=== PATIENT | male | born 1990 | race African-American/Black ===

== ENCOUNTER 2021-09-22 00:18 | Emergency (ER) | payer MEDICAID ==
[~2021-09-22] VITALS: Ht 182.9 cm; Wt 99.0 kg
[2021-09-22] MEDS ORDERED: TETANUS, DIPHTHERIA, PERTUSSIS VAC/PF 0.5ML (>10YR OLD) IM ONE (01:00)
[2021-09-22] MEDS ORDERED: BACITRACIN ZINC OINT UDPKT TOP ONE (01:00)
[2021-09-22] MEDS ORDERED: LIDOCAINE HCL/PF 1% 10 MG/ML 5ML VIAL INFIL ONE (01:00)
[2021-09-22] MEDS ORDERED: HYDROCODONE/ACETAMINOPHEN 5/325MG TABLET PO ONE (02:45)
[2021-09-22 05:44] VITALS: BP 137/86
[2021-09-22] MEDS ORDERED: KETOROLAC 60MG/2ML VIAL IM ONE (05:45)
[2021-09-22] MEDS ORDERED: IBUP-2030 MT (06:14)
== END 2021-09-22 06:41 | disposition home or self-care (01) ==
LOC: ER 00:18
DX: S02.2XXA Fracture of nasal bones, initial encounter for closed fracture (principal); S61.011A Laceration without foreign body of right thumb without damage to nail, initial encounter; Y04.0XXA Assault by unarmed brawl or fight, initial encounter; Y93.89 Activity, other specified; Y92.89 Other specified places as the place of occurrence of the external cause; Y99.8 Other external cause status
CPT/HCPCS: 12002; 70486; 90471; 90715; 96372; 99284; J1885; J3490

== ENCOUNTER 2021-10-07 16:44 | Emergency (ER) | payer MEDICAID ==
[~2021-10-07] VITALS: Ht 182.9 cm; Wt 98.0 kg
[~2021-10-07 16:44] MED LIST: IBUP-2030 MT
[2021-10-07 16:47] VITALS: BP 138/83
== END 2021-10-07 17:05 | disposition home or self-care (01) ==
LOC: ER 16:44
DX: Z48.02 Encounter for removal of sutures (principal)
CPT/HCPCS: 99281